=== PATIENT | female | born 1975 ===

== ENCOUNTER 2021-01-01 13:09 | Emergency (ER) | payer OTHER ==
[~2021-01-01] VITALS: Ht 149.9 cm; Wt 72.6 kg
[2021-01-01] MEDS ORDERED: METFORMIN HCL1000 M2 PO (13:25)
== END 2021-01-01 17:32 | disposition home or self-care (01) ==
LOC: ER 13:09
DX: N20.0 Calculus of kidney (principal)

== ENCOUNTER 2021-03-28 19:29 | Emergency (ER) | payer OTHER ==
[~2021-03-28] VITALS: Ht 149.9 cm; Wt 71.2 kg
[~2021-03-28 19:29] MED LIST: METFORMIN HCL1000 M2 PO
[2021-03-28] MEDS ORDERED: DICLOFENAC SODI75 MG PO (21:06)
[2021-03-28] MEDS ORDERED: NORFLEX100MG PO (21:06)
== END 2021-03-28 21:14 | disposition home or self-care (01) ==
LOC: ER 19:29
DX: M25.511 Pain in right shoulder (principal); Z11.52 Encounter for screening for COVID-19

== ENCOUNTER 2021-09-10 15:41 | Emergency (ER) | payer OTHER ==
[~2021-09-10] VITALS: Ht 149.9 cm; Wt 65.8 kg
[~2021-09-10 15:41] MED LIST changes: +DICLOFENAC SODI75 MG PO; +NORFLEX100MG PO
[2021-09-10] MEDS ORDERED: PERCOCET 5-3251 EACH PO (22:31)
[2021-09-10] MEDS ORDERED: TAMS0.4C PO (22:31)
== END 2021-09-10 22:34 | disposition home or self-care (01) ==
LOC: ER 15:41
DX: N20.2 Calculus of kidney with calculus of ureter (principal); R10.31 Right lower quadrant pain

== ENCOUNTER 2022-02-26 16:45 | Emergency (ER) | payer OTHER ==
[~2022-02-26] VITALS: Ht 149.9 cm; Wt 65.8 kg
[~2022-02-26 16:45] MED LIST changes: +PERCOCET 5-3251 EACH PO; +TAMS0.4C PO
== END 2022-02-26 20:04 | disposition home or self-care (01) ==
LOC: ER 16:45
DX: R10.13 Epigastric pain (principal); R11.10 Vomiting, unspecified